=== PATIENT | male | born 1965 | race Caucasian/White ===

== ENCOUNTER 2017-11-07 09:46 | Emergency (ER) | payer OTHER ==
[2017-11-07 10:47] LABS: ADD UMIC YES; UR ASCORBIC ACID NEGATIVE (NEGATIVE); UR BACTERIA FEW /HPF (NONE SEEN); UR BILIRUBIN (Dip) NEGATIVE (NEGATIVE); UR BLOOD (Dip) NEGATIVE (NEGATIVE); UR CLARITY SLIGHTLY CLOUDY (CLEAR); UR COLOR YELLOW (YELLOW); UR GLUCOSE (Dip) 3+ mg/dL (NEGATIVE); UR KETONES (Dip) 1+ mg/dL (NEGATIVE); UR LEUKOCYTE ESTERASE (Dip) NEGATIVE Leu/ul (NEGATIVE); UR MUCUS MODERATE /HPF (NONE SEEN); UR NITRITE (Dip) NEGATIVE (NEGATIVE); UR NONSQUAMOUS EPITHELIAL CELL 5 /HPF (NONE SEEN); UR RBC 6 /HPF (0-5); UR SPECIFIC GRAVITY (Dip) 1.016 (1.003-1.030); UR TOTAL PROTEIN (Dip) 1+ mg/dl (NEGATIVE); UR UROBILINOGEN (Dip) NEGATIVE (NEGATIVE); UR WBC 31 /HPF (0-5)
[2017-11-07] MEDS: SOD CHLORIDE 0.9% 1,000 ML IV (11:20)
[2017-11-07 11:24] LABS: ADD MAN DIFF? NO
[2017-11-07 11:26] LABS: WHITE BLOOD COUNT 9.4 10^3/ul (4.8-10.8)
[2017-11-07 11:26] LABS: BASOPHIL # 0.1 10^3/ul (0.0-0.1); BASOPHILS % 0.6 % (0.0-2.0); EOSINOPHILS # 0.1 10^3/ul (0.0-0.5); EOSINOPHILS % 0.5 % (0.0-7.0); HEMATOCRIT 42.3 % (42.0-52.0); LYMPHOCYTES # 1.2 10^3/ul (0.8-2.9); LYMPHOCYTES % 12.5 % (15.0-51.0); MEAN CORPUSCULAR HGB CONC 35.5 g/dl (32.0-37.0); MEAN CORPUSCULAR VOLUME 90.2 fl (82.0-101.0); MEAN PLATELET VOLUME 10.2 fl (7.4-10.4); MONOCYTE # 0.8 10^3/ul (0.3-0.9); MONOCYTES % 8.9 % (0.0-11.0); NEUTROPHIL # 7.2 10^3/ul (1.6-7.5); NEUTROPHILS % 77.1 % (39.0-77.0); PLATELET COUNT 144 10^3/UL (140-415); RED BLOOD COUNT 4.69 10^6/ul (4.70-6.10)
[2017-11-07] MEDS: CEFTRIAXONE 1 GM/50 ML (PMX) 50 ML IVPB (11:37)
[2017-11-07 11:54] LABS: ALANINE AMINOTRANSFERASE 40 IU/L (13-69); ALBUMIN 4.2 g/dl (3.3-4.9); ALBUMIN/GLOBULIN RATIO 1.07; ALKALINE PHOSPHATASE 64 IU/L (42-121); ANION GAP 16 (8-16); ASPARTATE AMINO TRANSFERASE 20 IU/L (15-46); BILIRUBIN,INDIRECT 0.7 mg/dl (0-1.1); BILIRUBIN,TOTAL 0.7 mg/dl (0.2-1.3); BLOOD UREA NITROGEN 11 mg/dl (7-20); CARBON DIOXIDE 27 mmol/L (21-31); CHLORIDE 98 mmol/L (97-110); CREATININE 0.79 mg/dl (0.61-1.24); GLUCOSE 257 mg/dl (70-220); LIPASE 59 U/L (23-300); POTASSIUM 4.1 mmol/L (3.5-5.1); SODIUM 137 mmol/L (135-144); TOTAL PROTEIN 8.1 g/dl (6.1-8.1)
== END 2017-11-07 12:38 | disposition home or self-care (01) ==
LOC: FTE 09:46
DX: N30.00 Acute cystitis without hematuria (principal); E11.9 Type 2 diabetes mellitus without complications
CPT/HCPCS: 36415; 74176; 80053; 81001; 82962; 83690; 85025; 87086; 96374; 99285-25

== ENCOUNTER 2018-01-01 11:24 | Emergency (ER) | payer OTHER ==
[2018-01-01 14:03] LABS: ADD MAN DIFF? NO
[2018-01-01 14:05] LABS: URINE BLOOD (Dip) POC 1+ (NEGATIVE); URINE KETONES (Dip) POC 1+ (NEGATIVE); URINE LEUKOCYTE EST (Dip) POC 1+ (NEGATIVE); URINE NITRITE (Dip) POC Positive (NEGATIVE); URINE TOTAL PROTEIN POC 1+ (NEGATIVE)
[2018-01-01 14:05] LABS: URINE PH (Dip) POC 5.5 (5.0-8.5)
[2018-01-01 14:08] LABS: WHITE BLOOD COUNT 14.6 10^3/ul (4.8-10.8)
[2018-01-01 14:08] LABS: BASOPHIL # 0.1 10^3/ul (0.0-0.1); BASOPHILS % 0.4 % (0.0-2.0); EOSINOPHILS % 0.2 % (0.0-7.0); HEMATOCRIT 41.1 % (42.0-52.0); LYMPHOCYTES # 1.2 10^3/ul (0.8-2.9); LYMPHOCYTES % 8.2 % (15.0-51.0); MEAN CORPUSCULAR HEMOGLOBIN 30.1 pg (29.0-33.0); MEAN CORPUSCULAR HGB CONC 34.1 g/dl (32.0-37.0); MEAN CORPUSCULAR VOLUME 88.4 fl (82.0-101.0); MEAN PLATELET VOLUME 9.9 fl (7.4-10.4); MONOCYTE # 0.9 10^3/ul (0.3-0.9); MONOCYTES % 6.1 % (0.0-11.0); NEUTROPHIL # 12.3 10^3/ul (1.6-7.5); NEUTROPHILS % 84.6 % (39.0-77.0); PLATELET COUNT 293 10^3/UL (140-415); RED BLOOD COUNT 4.65 10^6/ul (4.70-6.10); RED CELL DISTRIBUTION WIDTH 11.8 % (11.5-14.5)
[2018-01-01 14:34] LABS: ANION GAP 16 (8-16); BLOOD UREA NITROGEN 13 mg/dl (7-20); CALCIUM 9.3 mg/dl (8.4-10.2); CARBON DIOXIDE 25 mmol/L (21-31); CHLORIDE 98 mmol/L (97-110); GLUCOSE 287 mg/dl (70-220); POTASSIUM 4.5 mmol/L (3.5-5.1); SODIUM 134 mmol/L (135-144)
[2018-01-01] MEDS: SOD CHLORIDE 0.9% 1,000 ML IV (15:07)
[2018-01-01] MEDS: CEFTRIAXONE 1 GM/50 ML (PMX) 50 ML IVPB (15:07)
[2018-01-01] MEDS: ACETAMINOPHEN 325 MG TAB PO (15:22)
[2018-01-01 15:35] LABS: LACTIC ACID 1.4 mmol/L (0.5-2.0)
[2018-01-01] MEDS: SOD CHLORIDE 0.9% 2,000 ML IV (15:42)
== END 2018-01-01 16:59 | disposition home or self-care (01) ==
LOC: FTE 11:24
DX: N12 Tubulo-interstitial nephritis, not specified as acute or chronic (principal); E11.9 Type 2 diabetes mellitus without complications
CPT/HCPCS: 80048; 81003; 83605; 85025; 87086; 96365; 99284-25

== ENCOUNTER 2018-03-24 19:45 | Inpatient (IN) | payer OTHER ==
[2018-03-24] MEDS: ONDANSETRON 4 MG INJ IV (22:29)
[2018-03-24] MEDS: morphine 4 MG/ML VIAL IV (22:29)
[2018-03-24 23:17] LABS: HEMATOCRIT 42.6 % (42.0-52.0); HEMOGLOBIN 14.9 g/dl (14.0-18.0); MEAN CORPUSCULAR HEMOGLOBIN 29.4 pg (29.0-33.0); MEAN CORPUSCULAR VOLUME 84.2 fl (82.0-101.0); MEAN PLATELET VOLUME 10.8 fl (7.4-10.4); PLATELET COUNT 185 10^3/UL (140-415); POSITIVE DIFF @See below; RED BLOOD COUNT 5.06 10^6/ul (4.70-6.10); RED CELL DISTRIBUTION WIDTH 12.9 % (11.5-14.5)
[2018-03-24 23:17] LABS: WHITE BLOOD COUNT 13.5 10^3/ul (4.8-10.8)
[2018-03-24 23:23] LABS: ADD UMIC NO; UR ASCORBIC ACID NEGATIVE (NEGATIVE); UR BACTERIA FEW /HPF (NONE SEEN); UR BILIRUBIN (Dip) NEGATIVE (NEGATIVE); UR BLOOD (Dip) NEGATIVE (NEGATIVE); UR CLARITY SLIGHTLY CLOUDY (CLEAR); UR COLOR YELLOW (YELLOW); UR GLUCOSE (Dip) 3+ mg/dL (NEGATIVE); UR KETONES (Dip) TRACE mg/dL (NEGATIVE); UR LEUKOCYTE ESTERASE (Dip) NEGATIVE Leu/ul (NEGATIVE); UR MUCUS MODERATE /HPF (NONE SEEN); UR NITRITE (Dip) NEGATIVE (NEGATIVE); UR RBC 0 /HPF (0-5); UR SPECIFIC GRAVITY (Dip) 1.017 (1.003-1.030); UR TOTAL PROTEIN (Dip) NEGATIVE (NEGATIVE); UR UROBILINOGEN (Dip) NEGATIVE (NEGATIVE); UR WBC 9 /HPF (0-5)
[2018-03-24 23:25] LABS: ADD MAN DIFF? YES
[2018-03-24 23:37] LABS: INR 1.09; PARTIAL THROMBOPLASTIN TIME 24.7 Sec (23.0-35.0); PROTIME 14.2 Sec (11.9-14.9); PT RATIO 1.1
[2018-03-24 23:46] LABS: ALANINE AMINOTRANSFERASE 17 IU/L (13-69); ALBUMIN 4.4 g/dl (3.3-4.9); ALBUMIN/GLOBULIN RATIO 1.62; ALKALINE PHOSPHATASE 75 IU/L (42-121); ANION GAP 16 (5-13); ASPARTATE AMINO TRANSFERASE 29 IU/L (15-46); BILIRUBIN,INDIRECT 0.4 mg/dl (0-1.1); BILIRUBIN,TOTAL 0.4 mg/dl (0.2-1.3); BLOOD UREA NITROGEN 16 mg/dl (7-20); CALCIUM 9.1 mg/dl (8.4-10.2); CARBON DIOXIDE 26 mmol/L (21-31); CHLORIDE 92 mmol/L (97-110); Estimated GFR > 60 mL/min (>60); GLUCOSE 289 mg/dl (70-220); POTASSIUM 4.3 mmol/L (3.5-5.1); SODIUM 134 mmol/L (135-144); TOTAL PROTEIN 7.1 g/dl (6.1-8.1)
[2018-03-24 23:58] LABS: TROPONIN-I < 0.012 ng/ml (0.000-0.120)
[2018-03-25] MEDS: SODIUM CHLORIDE 0.9% 1L BAG IV* (00:03)
[2018-03-25] MEDS: CEFEPIME 2GM/50 ML (PMX) 50 ML IVPB (00:03)
[2018-03-25] MEDS: VANCOMYCIN 1 GM (PMX) 250 ML IVPB (01:36)
[2018-03-25 02:42] LABS: ANISOCYTOSIS 1+ (0-0); BAND NEUTROPHILS #M 3.2 10^3/ul (0.0-0.6); BAND NEUTROPHILS % (M) 24 % (0-4); EOSINOPHILS % (M) 1 % (0-7); LYMPHOCYTES % (M) 8 % (15-51); MICROCYTOSIS 1+ (0-0); MONOCYTE #M 0.9 10^3/ul (0.3-0.9); MONOCYTES % (M) 7 % (0-11); PLATELET ESTIMATE NORMAL; SEG NEUT #M 8.5 10^3/ul (1.6-7.5); SEGMENTED NEUTROPHILS (M) % 60 % (39-77); SMUDGE%M 36 % (0-0)
[2018-03-25] MEDS ORDERED: ONDANSETRON 4 MG INJ IV ×2 (04:00→07:30)
[2018-03-25 04:06] LABS: LACTIC ACID 2.8 mmol/L (0.5-2.0)
[2018-03-25 07:17] LABS: ADD MAN DIFF? NO
[2018-03-25] MEDS: SOD CHLORIDE 0.9% 1,000 ML IV (07:18)
[2018-03-25 07:22] LABS: BASOPHILS % 0.2 % (0.0-2.0); EOSINOPHILS # 0.1 10^3/ul (0.0-0.5); EOSINOPHILS % 0.8 % (0.0-7.0); HEMATOCRIT 38.7 % (42.0-52.0); HEMOGLOBIN 13.5 g/dl (14.0-18.0); LYMPHOCYTES % 15.5 % (15.0-51.0); MEAN CORPUSCULAR HEMOGLOBIN 29.7 pg (29.0-33.0); MEAN CORPUSCULAR HGB CONC 34.9 g/dl (32.0-37.0); MEAN CORPUSCULAR VOLUME 85.1 fl (82.0-101.0); MEAN PLATELET VOLUME 10.8 fl (7.4-10.4); MONOCYTE # 1.2 10^3/ul (0.3-0.9); MONOCYTES % 9.3 % (0.0-11.0); NEUTROPHIL # 9.4 10^3/ul (1.6-7.5); PLATELET COUNT 183 10^3/UL (140-415); RED BLOOD COUNT 4.55 10^6/ul (4.70-6.10)
[2018-03-25 07:22] LABS: WHITE BLOOD COUNT 12.8 10^3/ul (4.8-10.8)
[2018-03-25] MEDS ORDERED: morphine 2 MG INJ IV (07:30)
[2018-03-25] MEDS ORDERED: NACL 0.9% 3 ML SYG IV (07:30)
[2018-03-25 07:44] LABS: HEMOGLOBIN A1C 8.8 % (0-5.9)
[2018-03-25 07:45] LABS: ALANINE AMINOTRANSFERASE 22 IU/L (13-69); ALBUMIN 3.6 g/dl (3.3-4.9); ALBUMIN/GLOBULIN RATIO 1.24; ALKALINE PHOSPHATASE 60 IU/L (42-121); ANION GAP 10 (5-13); ASPARTATE AMINO TRANSFERASE 20 IU/L (15-46); BILIRUBIN,INDIRECT 0.5 mg/dl (0-1.1); BILIRUBIN,TOTAL 0.5 mg/dl (0.2-1.3); BLOOD UREA NITROGEN 12 mg/dl (7-20); CALCIUM 8.4 mg/dl (8.4-10.2); CARBON DIOXIDE 25 mmol/L (21-31); CHLORIDE 103 mmol/L (97-110); CREATININE 0.71 mg/dl (0.61-1.24); Estimated GFR > 60 mL/min (>60); GLUCOSE 220 mg/dl (70-220); POTASSIUM 4.2 mmol/L (3.5-5.1); SODIUM 138 mmol/L (135-144); TOTAL PROTEIN 6.5 g/dl (6.1-8.1)
[2018-03-25] MEDS ORDERED: metFORMIN 500 MG TAB PO (07:55)
[2018-03-25] MEDS ORDERED: GLUCAGON 1 MG INJ IM (08:00)
[2018-03-25] MEDS ORDERED: GLUCOSE GEL 15 GRAM TUBE BUCCAL (08:00)
[2018-03-25] MEDS: [UNRECOGNIZED DRUG - REMARK] XX (08:00)
[2018-03-25] MEDS ORDERED: GLUCOSE GEL 15 GRAM TUBE PO ×2 (08:00)
[2018-03-25] MEDS ORDERED: DEXTROSE 50% 50 ML SYRINGE IV ×2 (08:00)
[2018-03-25] MEDS ORDERED: HEPARIN 5,000 UNIT/0.5 ML VIAL ×2 (08:06→19:45)
[2018-03-25] MEDS: FAMOTIDINE 20 MG INJ IV ×2 (08:34→20:20)
[2018-03-25] MEDS: INSULIN ASPART [NOVOLOG] 3 ML PEN SC ×5 (08:35→20:52)
[2018-03-25] MEDS: HEPARIN 5,000 UNIT/1 ML VIAL SC ×2 (08:37→20:52)
[2018-03-25] MEDS: CIPROFLOXACIN 400MG/D5W 200 ML IVPB ×2 (08:44→20:22)
[2018-03-25] MEDS: metroNIDAZOLE 500 MG/NS (PMX) 100 ML IVPB ×2 (15:41→21:40)
[2018-03-25] MEDS: SOD CHLORIDE 0.45% 1,000 ML IV (15:41)
[2018-03-25 15:50] LABS: LACTIC ACID 2.5 mmol/L (0.5-2.0)
[2018-03-25] MEDS: INSULIN GLARGINE [LANTus] (100 UNITS/ML) SYG SC (20:27)
[2018-03-25 20:34] LABS: LACTIC ACID 2.9 mmol/L (0.5-2.0)
[2018-03-26 00:01] LABS: LACTIC ACID 2.2 mmol/L (0.5-2.0)
[2018-03-26] MEDS ORDERED: ACCU-CHEK XX (02:00)
[2018-03-26] MEDS: ACCU-CHEK XX (02:36)
[2018-03-26] MEDS: SOD CHLORIDE 0.45% 1,000 ML IV ×2 (04:20→10:16)
[2018-03-26] MEDS: metroNIDAZOLE 500 MG/NS (PMX) 100 ML IVPB (06:05)
[2018-03-26 07:30] LABS: LACTIC ACID 1.6 mmol/L (0.5-2.0); PHOSPHORUS 4.5 mg/dl (2.5-4.9)
[2018-03-26 07:30] LABS: MAGNESIUM 1.5 mg/dl (1.7-2.5)
[2018-03-26] MEDS ORDERED: HEPARIN 5,000 UNIT/0.5 ML VIAL ×2 (08:02→20:28)
[2018-03-26] MEDS: FAMOTIDINE 20 MG INJ IV ×2 (08:05→20:36)
[2018-03-26] MEDS: CIPROFLOXACIN 400MG/D5W 200 ML IVPB (08:05)
[2018-03-26] MEDS: INSULIN ASPART [NOVOLOG] 3 ML PEN SC ×7 (08:18→20:40)
[2018-03-26] MEDS: HEPARIN 5,000 UNIT/1 ML VIAL SC ×2 (08:21→20:40)
[2018-03-26] MEDS: MAGNESIUM SULFATE 2 GM/50 ML 50 ML IVPB (11:11)
[2018-03-26] MEDS: CEFEPIME 2GM/50 ML (PMX) 50 ML IVPB ×2 (12:05→20:36)
[2018-03-26 14:39] LABS: ADD MAN DIFF? NO
[2018-03-26 14:45] LABS: BASOPHILS % 0.4 % (0.0-2.0); EOSINOPHILS # 0.1 10^3/ul (0.0-0.5); EOSINOPHILS % 1.9 % (0.0-7.0); HEMATOCRIT 39.4 % (42.0-52.0); HEMOGLOBIN 13.8 g/dl (14.0-18.0); LYMPHOCYTES # 1.9 10^3/ul (0.8-2.9); LYMPHOCYTES % 28.1 % (15.0-51.0); MEAN CORPUSCULAR HEMOGLOBIN 29.7 pg (29.0-33.0); MEAN CORPUSCULAR VOLUME 84.7 fl (82.0-101.0); MEAN PLATELET VOLUME 10.4 fl (7.4-10.4); MONOCYTE # 0.5 10^3/ul (0.3-0.9); MONOCYTES % 6.9 % (0.0-11.0); NEUTROPHIL # 4.2 10^3/ul (1.6-7.5); NEUTROPHILS % 62.4 % (39.0-77.0); PLATELET COUNT 181 10^3/UL (140-415); RED BLOOD COUNT 4.65 10^6/ul (4.70-6.10); RED CELL DISTRIBUTION WIDTH 12.7 % (11.5-14.5)
[2018-03-26 14:45] LABS: WHITE BLOOD COUNT 6.7 10^3/ul (4.8-10.8)
[2018-03-26 15:05] LABS: ANION GAP 13 (5-13); BLOOD UREA NITROGEN 11 mg/dl (7-20); CARBON DIOXIDE 28 mmol/L (21-31); CHLORIDE 98 mmol/L (97-110); CREATININE 0.69 mg/dl (0.61-1.24); Estimated GFR > 60 mL/min (>60); GLUCOSE 193 mg/dl (70-220); POTASSIUM 3.8 mmol/L (3.5-5.1); SODIUM 139 mmol/L (135-144)
[2018-03-26] MEDS: INSULIN GLARGINE [LANTus] (100 UNITS/ML) SYG SC (20:40)
[2018-03-27] MEDS: ACCU-CHEK XX (02:06)
[2018-03-27] MEDS: SOD CHLORIDE 0.45% 1,000 ML IV ×3 (02:06→17:27)
[2018-03-27] MEDS: INSULIN ASPART [NOVOLOG] 3 ML PEN SC ×7 (08:00→20:16)
[2018-03-27 08:06] LABS: ADD MAN DIFF? NO
[2018-03-27] MEDS ORDERED: HEPARIN 5,000 UNIT/0.5 ML VIAL ×2 (08:15→20:02)
[2018-03-27 08:16] LABS: BASOPHILS % 0.6 % (0.0-2.0); EOSINOPHILS # 0.1 10^3/ul (0.0-0.5); EOSINOPHILS % 1.6 % (0.0-7.0); HEMATOCRIT 39.9 % (42.0-52.0); HEMOGLOBIN 13.9 g/dl (14.0-18.0); LYMPHOCYTES # 1.9 10^3/ul (0.8-2.9); MEAN CORPUSCULAR HEMOGLOBIN 29.5 pg (29.0-33.0); MEAN CORPUSCULAR HGB CONC 34.8 g/dl (32.0-37.0); MEAN CORPUSCULAR VOLUME 84.7 fl (82.0-101.0); MONOCYTE # 0.6 10^3/ul (0.3-0.9); NEUTROPHILS % 60.2 % (39.0-77.0); PLATELET COUNT 188 10^3/UL (140-415); RED BLOOD COUNT 4.71 10^6/ul (4.70-6.10); RED CELL DISTRIBUTION WIDTH 12.8 % (11.5-14.5)
[2018-03-27 08:16] LABS: WHITE BLOOD COUNT 6.7 10^3/ul (4.8-10.8)
[2018-03-27] MEDS: CEFEPIME 2GM/50 ML (PMX) 50 ML IVPB ×2 (08:19→20:16)
[2018-03-27] MEDS: FAMOTIDINE 20 MG INJ IV ×2 (08:20→20:16)
[2018-03-27] MEDS: HEPARIN 5,000 UNIT/1 ML VIAL SC ×2 (08:27→20:33)
[2018-03-27 08:29] LABS: ANION GAP 8 (5-13); BLOOD UREA NITROGEN 12 mg/dl (7-20); CALCIUM 8.9 mg/dl (8.4-10.2); CARBON DIOXIDE 28 mmol/L (21-31); CHLORIDE 100 mmol/L (97-110); CREATININE 0.64 mg/dl (0.61-1.24); Estimated GFR > 60 mL/min (>60); GLUCOSE 217 mg/dl (70-220); POTASSIUM 4.2 mmol/L (3.5-5.1); SODIUM 136 mmol/L (135-144)
[2018-03-27 08:30] LABS: PHOSPHORUS 4.8 mg/dl (2.5-4.9)
[2018-03-27 08:30] LABS: MAGNESIUM 1.7 mg/dl (1.7-2.5)
[2018-03-27] MEDS: DOCUSATE SODIUM 100 MG CAP PO ×2 (17:41→20:16)
[2018-03-27] MEDS: ACETAMINOPHEN 325 MG TAB PO (17:41)
[2018-03-27] MEDS: INSULIN GLARGINE [LANTus] (100 UNITS/ML) SYG SC (20:32)
[2018-03-28] MEDS: ACCU-CHEK XX (02:00)
[2018-03-28] MEDS ORDERED: HEPARIN 5,000 UNIT/0.5 ML VIAL ×2 (08:55→20:26)
[2018-03-28] MEDS: SOD CHLORIDE 0.45% 1,000 ML IV ×2 (09:03→23:00)
[2018-03-28] MEDS: CEFEPIME 2GM/50 ML (PMX) 50 ML IVPB ×2 (09:04→20:39)
[2018-03-28] MEDS: FAMOTIDINE 20 MG INJ IV ×2 (09:04→20:40)
[2018-03-28] MEDS: DOCUSATE SODIUM 100 MG CAP PO ×2 (09:04→20:40)
[2018-03-28] MEDS: INSULIN ASPART [NOVOLOG] 3 ML PEN SC ×7 (09:06→20:41)
[2018-03-28] MEDS: HEPARIN 5,000 UNIT/1 ML VIAL SC ×2 (09:21→20:44)
[2018-03-28 16:43] LABS: ADD UMIC NO; UR ASCORBIC ACID NEGATIVE (NEGATIVE); UR BILIRUBIN (Dip) NEGATIVE (NEGATIVE); UR BLOOD (Dip) NEGATIVE (NEGATIVE); UR CLARITY CLEAR (CLEAR); UR COLOR YELLOW (YELLOW); UR GLUCOSE (Dip) 1+ mg/dL (NEGATIVE); UR KETONES (Dip) NEGATIVE (NEGATIVE); UR LEUKOCYTE ESTERASE (Dip) NEGATIVE Leu/ul (NEGATIVE); UR NITRITE (Dip) NEGATIVE (NEGATIVE); UR SPECIFIC GRAVITY (Dip) 1.014 (1.003-1.030); UR TOTAL PROTEIN (Dip) NEGATIVE (NEGATIVE); UR UROBILINOGEN (Dip) NEGATIVE (NEGATIVE)
[2018-03-28] MEDS: FOSFOMYCIN 3 GM PACKET PO (20:40)
[2018-03-28] MEDS: INSULIN GLARGINE [LANTus] (100 UNITS/ML) SYG SC (20:45)
[2018-03-29] MEDS: ACCU-CHEK XX (02:00)
[2018-03-29] MEDS: SOD CHLORIDE 0.45% 1,000 ML IV (05:25)
[2018-03-29] MEDS ORDERED: HEPARIN 5,000 UNIT/0.5 ML VIAL (08:50)
[2018-03-29] MEDS: CEFEPIME 2GM/50 ML (PMX) 50 ML IVPB (09:03)
[2018-03-29] MEDS: FAMOTIDINE 20 MG INJ IV (09:03)
[2018-03-29] MEDS: DOCUSATE SODIUM 100 MG CAP PO (09:04)
[2018-03-29] MEDS: INSULIN ASPART [NOVOLOG] 3 ML PEN SC ×4 (10:21→13:31)
[2018-03-29] MEDS: HEPARIN 5,000 UNIT/1 ML VIAL SC (10:23)
== END 2018-03-29 15:15 | disposition home or self-care (01) | DRG 872 ==
LOC: TEL 03-26 13:00 → 2NE 03-28 21:35 → TEL 03-25 00:07 → E/R 19:45 → 6WM 03-25 02:50 → TEL 03-25 02:50
DX: A41.9 Sepsis, unspecified organism (principal); N39.0 Urinary tract infection, site not specified; E11.65 Type 2 diabetes mellitus with hyperglycemia; K52.9 Noninfective gastroenteritis and colitis, unspecified; B96.1 Klebsiella pneumoniae [K. pneumoniae] as the cause of diseases classified elsewhere; I88.8 Other nonspecific lymphadenitis
CPT/HCPCS: 36415; 71045; 74176; 80048; 80053; 81001; 81003; 82962; 83036; 83605; 83735; 84100; 84484; 85025; 85610; 85730; 87040; 87045; 87075; 87081; 87086; 90686; 93005; 96374; 96375; 99291-25